=== PATIENT | female | born 1995 | race Caucasian/White ===

== ENCOUNTER 2024-12-21 11:08 | Emergency (ER) | payer MEDICAID, SELFPAY ==
[2024-12-21 11:29] VITALS: BP 105/73; PULSE 140; RESP 20; TEMP 38.4; O2SAT 93; BMI 27.3
--- NOTE | 2024-12-21 11:33 | XR_ITS ---
Examination: AP chest single view Technique one AP portable upright chest single view Exam date and time: December 21, 2024 1210 hours INDICATIONS: Coughing fever congestion today. FINDINGS: Normal heart size Lungs are clear. The osseous structures are intact IMPRESSION: No active disease
[2024-12-21 11:40] VITALS: PULSE 136; TEMP 38.3
[2024-12-21] MEDS: DEXAMETHASONE SOD PHOS INJ 10 MG/ML VIAL PO (11:40)
[2024-12-21] MEDS: ALBUTEROL RT 2.5 MG/0.5 ML NEBU 5 MG INH ×2 (11:40→12:47)
[2024-12-21] MEDS: IBUPROFEN TAB 400 MG TABLET 800 MG PO (11:40)
[2024-12-21] MEDS: IPRATROPIUM RT 0.5 MG/ 2.5 ML NEBU 1 MG INH (11:41)
[2024-12-21 11:44] VITALS: PULSE 131; RESP 20; O2SAT 99
[2024-12-21 12:47] VITALS: PULSE 145
[2024-12-21] MEDS: SODIUM CHLORIDE RT SOL 0.9% 3 ML NEBU INH (12:48)
[2024-12-21 12:50] VITALS: PULSE 147; RESP 24; O2SAT 95
--- NOTE | 2024-12-21 13:10 | PD.EDURI ---
Upper Respiratory Inf. RME/HPI General Chief Complaint: Flu Like Symptoms Stated Complaint: COUGH, FEVER, SOB; HX ASTHMA Time Seen by Provider: 12/21/24 11:16 Arrival date/time: 12/21/24 11:08 29-year-old female with history of asthma presents to the emergency department today complains of cough, congestion, wheezing symptoms ongoing x 1 day patient reports no chance of there are no other associated symptoms or aggravating factors no other modifying factors, patient denies taking medication before coming to ER today Limitations: no limitations Related Data Home Medications ?Medication ?Instructions ?Recorded ?Confirmed vits no.[id number] fum 1 tab PO QDAY 03/14/19 03/14/19 27 mg iron-folic acid 800 mcg tablet ( Vitamin) Previous Rx's ?Medication ?Instructions ?Recorded albuterol sulfate 90 mcg/actuation 2 puff inhalation Q6H PRN 12/21/24 aerosol inhaler (Ventolin HFA) shortness of breath or wheezing #8.5 grams ibuprofen 600 mg tablet 600 mg PO Q6H #30 tabs 12/21/24 Allergies Allergy/AdvReac Type Severity Reaction Status Date / Time No Known Allergies Allergy Verified 12/21/24 11:09 Review of Systems Review of Systems Systems Reviewed: All systems reviewed, normal except as documented Constitutional Constitutional: Reports system reviewed and no additional complaints, except as documented, Reports body ache(s), Reports chills, Reports fever(s) and Reports headache(s) Eyes Eyes: Reports system reviewed and no additional complaints, except as documented and Denies blurry vision ENT Ears, Nose, Mouth, and Throat: Reports system reviewed and no additional complaints, except as documented, Reports headache(s), Reports nasal congestion and Reports nasal discharge Cardiovascular Cardiovascular: Reports system reviewed and no additional complaints, except as documented, Denies chest pain and Denies dyspnea Respiratory Respiratory: Reports system reviewed and no additional complaints, except as documented, Reports chest congestion, Reports cough and Denies dyspnea Gastrointestinal Gastrointestinal: Reports system reviewed and no additional complaints, except as documented and Denies abdominal pain Integumentary/Breasts Skin/Breast: Reports system reviewed and no additional complaints, except as documented and Denies rash Neurologic Neurologic: Reports system reviewed and no additional complaints, except as documented, Reports as per HPI and Reports headache(s) Past Medical History Past Medical History NEUROLOGIC: Negative Neurological Disorders CARDIAC: Negative Cardiac Disorders or Congestive Heart Failure RESPIRATORY: Negative Chronic Obstructive Pulmonary Disease (COPD) GASTROINTESTINAL: Negative Gastrointestinal Disorders GENITOURINARY: Negative Genitourinary Disorders or Renal Disease MUSCULOSKELETAL: Negative Musculoskeletal Disorders or Carpal Tunnel Syndrome ENDOCRINE: Negative Endocrine Disorders, Diabetes Mellitus Type 1 or Diabetes Mellitus Type 2 HEMATOLOGIC: Negative Blood Disorders OTHER HISTORY: Negative Hospitalization, Autoimmune Disease, Down Syndrome, Developmental Delay, Shingles, Falls, Blood Transfusions, Blood Transfusion Reaction, Anesthesia Reactions, Organ Transplant, Chemotherapy, Radiation Therapy, Hyperbaric Therapy, MRSA, VRSA, Vancomycin-Resistant Enterococci or Clostridium Difficile Family History FAMILY HISTORY: Positive Family Psychiatric Problems (MATERNAL GRANDMOTHER) and Family Respiratory Disorders (ASTHMA); Negative Family Cancer, Family Surgery or Family Anesthesia Reaction Surgical History SURGICAL: Negative Cardiac Surgery, Endocrine Surgery, Thyroidectomy, Ear Surgery, Abdominal Surgery, Gastric Bypass Surgery, Gastrostomy, Bowel Surgery, Joint Replacement, Amputation, Open Reduction Internal Fixation, Arthroscopy, Mastectomy, Lumpectomy, Hysterectomy, Tubal Ligation, Section, Vasectomy or Organ Transplant Social History SMOKING STATUS: Never smoker ED Exam General Limitations: Present no limitations General appearance: Present alert and in no apparent distress Head Head exam: Present atraumatic, normocephalic and normal inspection Eye Eye exam: Present normal appearance, PERRL and EOMI; Absent conjunctival injection ENT ENT exam: Present normal exam, normal oropharynx and mucous membranes moist Neck Neck exam: Present normal inspection, full ROM and trachea midline Chest Chest inspection: Present normal inspection and symmetric chest wall rise Respiratory Respiratory exam: Present wheezes and prolonged expiratory phase; Absent respiratory distress, stridor or accessory muscle use Cardiovascular Cardiovascular exam: Present regular rate, normal rhythm and normal heart sounds Abdominal Exam Abdominal exam: Present soft and normal bowel sounds; Absent distention, tenderness, guarding, rebound or rigidity Extremities Exam Extremities exam: Present normal inspection and full ROM Back Exam Back exam: Present normal inspection and full ROM Neurological Exam Neurological exam: Present alert, oriented X3 and CN II-XII intact Psychiatric Psychiatric exam: Present normal affect and normal mood Skin Skin exam: Present warm, dry, intact and normal color Course Quality Measures none Orders Category Date Time Status Bedside COVID-19 Antigen Test NOW Care 12/21/24 11:33 Completed Bedside Influenza A&B Antigen Test NOW Care 12/21/24 11:33 Completed XR chest 1V portable Stat Exams 12/21/24 11:33 Completed ALBUTEROL RT 0.5ml [Proventil Rt 0.5ml] Med 12/21/24 11:33 Discontinued 5 mg INH X1 ONE ALBUTEROL RT 0.5ml [Proventil Rt 0.5ml] Med 12/21/24 12:40 Discontinued 5 mg INH X1 ONE Dexamethasone Inj [Decadron Inj] Med 12/21/24 11:33 Discontinued 10 mg PO X1 ONE Ibuprofen Tab [Motrin Tab] Med 12/21/24 11:33 Discontinued 800 mg PO X1 ONE Ipratropium [place] Rt Renetta [Atrovent Rt Renetta] Med 12/21/24 11:33 Discontinued 1 mg INH X1 ONE Sodium Chloride Rt Renetta 0.9% [NS Rt Renetta 0.9%] Med 12/21/24 11:33 Discontinued 3 ml INH PRN PRN Sodium Chloride Rt Renetta 0.9% [NS Rt Renetta 0.9%] Med 12/21/24 12:40 Discontinued 3 ml INH PRN PRN Vital Signs Vital signs: Vital Signs Temperature 101.1 F H 12/21/24 11:29 Pulse Rate 140 H 12/21/24 11:29 Respiratory Rate 20 12/21/24 11:29 Blood Pressure 105/73 12/21/24 11:29 Pulse Oximetry (%) 93 L 12/21/24 11:29 Oxygen Delivery Method Room Air 12/21/24 11:29 O2 saturation 93% room air at time of evaluation O2 saturation 95% Upper Respiratory Infection MDM Narrative MDM Narrative:: 29-year-old female with history of asthma presents to the emergency department today complains of cough, congestion, wheezing symptoms ongoing x 1 day patient reports no chance of there are no other associated symptoms or aggravating factors no other modifying factors, patient denies taking medication before coming to ER today on exam patient does not appear ill or toxic but patient does have wheezing cough and congestion as well as fever Patient's son is being seen as a patient as well who was ill with similar symptoms Patient given breathing treatment and steroids as well as medication for fever At time reevaluation patient reports that her symptoms have completely resolved lungs are now clear to auscultation patient is afebrile I believe patient has an asthma exacerbation secondary to the influenza Patient discharged home in no distress to follow-up with primary care doctor in the next 24 to 48 hours and for any worsening symptoms to return to the ER immediately Patient data External records reviewed:: [facility] previous records Clinical information provided by:: patient Social determinants that could affect healthcare access:: none Patient has the following chronic illnesses:: Asthma How is presenting disease/condition affected by chronic disease/condition?: caused by Evaluation data The following diagnostics were reviewed and interpreted by me:: lab results and radiology exam(s) Lab and/or radiology exams considered but not ordered:: Labs and radiology obtained Interpretation Summary: Reviewed by me Medications / Prescriptions Medications or Prescriptions considered but not ordered:: Given Medication administrations:: Medication Administration History Discontinued Medications Albuterol (Albuterol Rt 2.5 Mg/0.5 Ml Nebu) 5 mg INH X1 ONE Stop: 12/21/24 11:34 Last Admin: 12/21/24 11:40 Dose: 5 mg Documented By: Albuterol (Albuterol Rt 2.5 Mg/0.5 Ml Nebu) 5 mg INH X1 ONE Stop: 12/21/24 12:41 Last Admin: 12/21/24 12:47 Dose: 5 mg Documented By: Dexamethasone Sodium Phosphate (Dexamethasone Sod Phos Inj 10 Mg/Ml Vial) 10 mg PO X1 ONE Stop: 12/21/24 11:34 Last Admin: 12/21/24 11:40 Dose: 10 mg Documented By: OA Ibuprofen (Ibuprofen Tab 400 Mg Tablet) 800 mg PO X1 ONE Stop: 12/21/24 11:34 Last Admin: 12/21/24 11:40 Dose: 800 mg Documented By: OA Ipratropium [place] (Ipratropium Rt 0.5 Mg/ 2.5 Ml Nebu) 1 mg INH X1 ONE Stop: 12/21/24 11:34 Last Admin: 12/21/24 11:41 Dose: 1 mg Documented By: Sodium Chloride (Sodium Chloride Rt Renetta 0.9% 3 Ml Nebu) 3 ml INH PRN PRN PRN Reason: SOLN Stop: 01/20/25 11:32 Last Admin: 12/21/24 12:48 Dose: 3 ml Documented By: MR Sodium Chloride (Sodium Chloride Rt Renetta 0.9% 3 Ml Nebu) 3 ml INH PRN PRN PRN Reason: SOLN Stop: 01/20/25 12:39 Given Consultations Consultation(s) initiated? (list below): No Diagnosis Upper Respiratory Differential Diagnosis: upper respiratory infection, sinusitis, viral infection, bronchitis, influenza and pharyngitis Most likely diagnosis given after review of the tests above:: Asthma exacerbation Admission Indicated Admission indicated?: not indicated Admission Request Was there a request for admission?: No Disposition Plan Disposition Plan: Discharge Discharge Attestation Discharge Attestation: The patient and all family members were given an opportunity to ask questions and understood the discharge instructions. Discharge instructions specifically effects, indications for sooner follow up or return to the emergency department, and the expected course of current diagnosis. Patient condition: Stable Discharge Plan Plan Patient Disposition: HOME (Self Care) Disposition Comment: Stable Prescriptions/Referrals Prescriptions/Med Rec: New ibuprofen 600 mg tablet 600 mg PO Q6H Qty: 30 0RF albuterol sulfate [Ventolin HFA] 90 mcg/actuation HFA aerosol inhaler 2 puff inhalation Q6H PRN (Reason: shortness of breath or wheezing) Qty: 8.5 0RF No Action Vitamin 27 mg iron- 800 mcg Tablet 1 tab PO QDAY Referrals: No Primary/Family,Physician [Primary Care Provider] - In 1 week Problem List Clinical Impression: Influenza, Asthma exacerbation Patient/Caregiver Discharge Instructions Education Materials: Asthma Additional Instructions: Please follow up with your primary care doctor in the next 24-48hrs for any worsening symptoms return here immediately Print Language: Macanese Stand Alone Forms: [place] Award Info., Work/School Release, Patient Portal Info Letter PA/[employer]AF[employer] ENGINEER Supervising Physician PA/RAYRAY Supervising Physician: Dr craig
== END 2024-12-21 16:21 | disposition home or self-care (01) ==
PROVIDERS: Emergency Provider Emergency Medicine
DX: J11.1 Influenza due to unidentified influenza virus with other respiratory manifestations (principal); J45.901 Unspecified asthma with (acute) exacerbation
CPT/HCPCS: 71045; 94640; 99284; J1100; A9270